=== PATIENT | male | born 1995 | race Asian ===

== ENCOUNTER 2025-06-26 19:06 | Emergency (ER) | payer OTHER ==
[~2025-06-26] VITALS: Ht 172.7 cm; Wt 68.2 kg
[2025-06-26 19:12] VITALS: TEMP 96.8
[2025-06-26 20:33] LABS: APPEARANCE,URINE CLEAR (CLEAR); GLUCOSE, URINE (UA) NEGATIVE (NEGATIVE); LEUKOCYTE ESTERASE ,URINE NEGATIVE (NEGATIVE); NITRATE,URINE NEGATIVE (NEGATIVE); OCCULT BLOOD,URINE NEGATIVE (NEGATIVE); SPECIFIC GRAVITIY, URINE 1.025 (1.003-1.030)
[2025-06-26 20:39] LABS: PLATELET COUNT (AUTO) 201 K/uL (150-450); RED BLOOD CELL COUNT(AUTO) 4.49 MIL/uL (4.50-5.90); RED CELL DISTRIBUTION WIDTH 12.1 % (11.5-14.5); WHITE BLOOD COUNT (AUTO) 9.4 K/uL (4.5-11.0)
[2025-06-26 20:48] LABS: CREATINE KINASE, TOTAL ONLY 486 U/L (39-308)
[2025-06-26 20:50] LABS: CALCIUM, TOTAL 9.2 mg/dL (8.8-10.5); CREATININE 0.96 mg/dL (0.60-1.30); GLOMERULAR FILTR. RATE CALC > 60 mL/min (>60); GLUCOSE,RANDOM 82 mg/dL (70-110); SODIUM SERUM 148 mmol/L (136-145); UREA NITROGEN, BLOOD 27 mg/dL (7-18)
[2025-06-26] MEDS: LORazepam 2 MG/ML VIAL IVP ONE (20:55)
[2025-06-26 21:00] LABS: TROPONIN I-HIGH SENSITIVITY 12 ng/L (<76)
[2025-06-26 22:16] VITALS: BP 127/61; PULSE 104; RESP 20; O2SAT 100
== END 2025-06-26 22:55 ==
LOC: EMS 19:06
DX: R45.851 Suicidal ideations (principal); F41.9 Anxiety disorder, unspecified; F32.A Depression, unspecified; G25.9 Extrapyramidal and movement disorder, unspecified; R06.02 Shortness of breath
CPT/HCPCS: 99284; 96374; 71045; 80048; 81003; 82550; 83880; 84484; 85025; 36415; J2060